=== PATIENT | male | born 1985 | race Caucasian/White ===

== ENCOUNTER 2016-04-27 19:39 | Emergency (ER) | payer MEDICARE, OTHER ==
[2016-04-27] MEDS ORDERED: Bacitracin Zinc 1 Packet ONE (20:12)
== END 2016-04-27 20:23 | disposition home or self-care (01) ==
LOC: BURERS 19:39
DX: L02.415 Cutaneous abscess of right lower limb (principal); E11.9 Type 2 diabetes mellitus without complications; F17.210 Nicotine dependence, cigarettes, uncomplicated
CPT/HCPCS: 10060

== ENCOUNTER 2017-01-16 16:04 | Emergency (ER) | payer MEDICARE, OTHER ==
[2017-01-16 16:30] LABS: #Basophils 0.1 thou/uL (0.0-0.2); #Eosinphils 0.1 thou/uL (0.0-0.7); #Lymphocytes 2.9 thou/uL (1.20-3.40); #Monocytes 0.6 thou/uL (0.11-0.59); %Basophils 0.8 % (0.0-1.0); %Eosinophils 0.9 % (0.0-10.0); %Lymphocytes 27.2 % (21.0-51.0); %Monocytes 5.8 % (0.0-10.0); %Neutrophils 65.2 % (42.0-75.0); Hemoglobin 16.6 g/dL (14.0-18.0); Mean Corpuscular Hemoglobin 32.6 pg (27.0-31.0); Mean Corpuscular Volume 93.3 fl (80.0-94.0); Mean Platelet Volume 6.4 fL (7.4-10.4); Platelet Count 259 thou/uL (130-400); RBC Distribution Width 11.4 % (11.5-14.5); Red Blood Cell (RBC) Count 5.08 mill/uL (4.70-6.10); White Blood Cell (WBC) Count 10.7 thou/uL (4.8-10.8)
[2017-01-16 16:48] LABS: ALT (SGPT) 31 U/L (8-55); AST (SGOT) 17 U/L (5-34); Albumin 4.6 g/dL (3.5-5.0); Alkaline Phosphatase 66 U/L (40-150); Anion Gap 17 mmol/L (10-20); BUN (Urea Nitrogen) 11 mg/dL (8.9-20.6); Bilirubin, Total 0.6 mg/dL (0.2-1.2); Calc. Creatinine Clearance 0 mL/min (70-130); Calcium 9.9 mg/dL (7.8-10.44); Carbon Dioxide 22 mmol/L (22-29); Chloride 100 mmol/L (98-107); Estimated GFR-MDRD Greater than 90; Globulin 3.6 g/dL (2.4-3.5); Glucose 248 mg/dL (70-105); Potassium 4.1 mmol/L (3.5-5.1); Protein, Total 8.2 g/dL (6.0-8.3); Sodium 135 mmol/L (136-145)
[2017-01-16 16:50] LABS: Troponin I Less than 0.010 ng/mL (< 0.028)
[2017-01-16] MEDS ORDERED: Ketorolac Tromethamine 30 MG/ML VIAL ONE (17:02)
== END 2017-01-16 17:55 | disposition home or self-care (01) ==
LOC: BURERS 16:04
DX: R07.9 Chest pain, unspecified (principal); E86.0 Dehydration; E11.9 Type 2 diabetes mellitus without complications; I10 Essential (primary) hypertension; F17.210 Nicotine dependence, cigarettes, uncomplicated; Z79.4 Long term (current) use of insulin
CPT/HCPCS: 80053; 82553; 84443; 84484; 85025; 93005; 96361; 96374; J1885

== ENCOUNTER 2017-06-05 00:39 | Emergency (ER) | payer MEDICARE, OTHER ==
[2017-06-05] MEDS ORDERED: Dicyclomine 20 MG TAB ONE (01:04)
[2017-06-05] MEDS ORDERED: Ketorolac Tromethamine 60 MG/2 ML VIAL ONE (01:04)
[2017-06-05 01:15] LABS: Bilirubin Negative (Negative); Blood, Urine Negative (Negative); Clarity Clear (Clear); Glucose, Urine (Dipstick) 500 mg/dL (Negative); Leukocyte Negative (Negative); Nitrite Negative (Negative); Protein, Urine (Dipstick) Negative (Neg-Trace); Specific Gravity, Urine 1.015 (1.005-1.030); Urobilinogen 0.2 mg/dL (0.2-1.0)
[2017-06-07 01:20] LABS: Chlamydia by PCR Not Detected (NotDetected); GC by PCR Not Detected (NotDetected)
== END 2017-06-05 01:34 | disposition home or self-care (01) ==
LOC: BURERS 00:39
DX: R10.32 Left lower quadrant pain (principal); E11.9 Type 2 diabetes mellitus without complications; I10 Essential (primary) hypertension; F17.210 Nicotine dependence, cigarettes, uncomplicated; Z79.84 Long term (current) use of oral hypoglycemic drugs; Z79.899 Other long term (current) drug therapy
CPT/HCPCS: 81003; 87491; 87591; 96372; J1885

== ENCOUNTER 2017-09-26 12:46 | Emergency (ER) | payer MEDICARE, OTHER ==
[2017-09-26] MEDS ORDERED: Lidocaine 1% 20 ML MDV ONE (13:02)
[2017-09-26] MEDS ORDERED: Lidocaine 1% w/Epinephrine 1:100K 30 ML VIAL ONE ×2 (13:19→13:20)
[2017-09-26] MEDS ORDERED: Triple Antibiotic Oint 1 GM Packet ONE (13:43)
== END 2017-09-26 13:45 | disposition home or self-care (01) ==
LOC: BURERS 12:46
DX: S01.81XA Laceration without foreign body of other part of head, initial encounter (principal); E11.9 Type 2 diabetes mellitus without complications; I10 Essential (primary) hypertension; F17.210 Nicotine dependence, cigarettes, uncomplicated; W22.8XXA Striking against or struck by other objects, initial encounter
CPT/HCPCS: 12011; J2001

== ENCOUNTER 2017-11-02 11:42 | Emergency (ER) | payer MEDICARE, OTHER | END 2017-11-02 12:12 | disposition home or self-care (01) | LOC: BURERS 11:42 | DX: L02.412 Cutaneous abscess of left axilla (principal); E11.9 Type 2 diabetes mellitus without complications; I10 Essential (primary) hypertension; F17.210 Nicotine dependence, cigarettes, uncomplicated; Z79.84 Long term (current) use of oral hypoglycemic drugs; Z79.899 Other long term (current) drug therapy | CPT/HCPCS: 10060 ==

== ENCOUNTER 2018-08-18 19:10 | Emergency (ER) | payer MEDICARE, OTHER ==
[2018-08-18] MEDS ORDERED: Lidocaine 2% w/ Epi 1:200K 10 ML VIAL ONE (19:20)
[2018-08-18] MEDS ORDERED: Bacitracin 1 PK ONE (19:42)
== END 2018-08-18 19:46 | disposition home or self-care (01) ==
LOC: BURERS 19:10
DX: S61.511A Laceration without foreign body of right wrist, initial encounter (principal); I48.91 Unspecified atrial fibrillation; E11.9 Type 2 diabetes mellitus without complications; I10 Essential (primary) hypertension; F17.210 Nicotine dependence, cigarettes, uncomplicated; Z79.84 Long term (current) use of oral hypoglycemic drugs; Z79.899 Other long term (current) drug therapy; W25.XXXA Contact with sharp glass, initial encounter
CPT/HCPCS: 12002

== ENCOUNTER 2018-12-13 10:17 | Emergency (ER) | payer MEDICARE, OTHER | END 2018-12-13 11:04 | disposition home or self-care (01) | LOC: BURERS 10:17 | DX: K02.9 Dental caries, unspecified (principal); I48.91 Unspecified atrial fibrillation; E11.9 Type 2 diabetes mellitus without complications; I10 Essential (primary) hypertension; F17.210 Nicotine dependence, cigarettes, uncomplicated; Z79.84 Long term (current) use of oral hypoglycemic drugs; Z79.899 Other long term (current) drug therapy | CPT/HCPCS: 99282 ==

== ENCOUNTER 2019-02-23 16:35 | Emergency (ER) | payer MEDICARE, OTHER ==
[2019-02-23] MEDS ORDERED: Neomycin-Polymyxin-Hc 7.5 ML BOT ONE (16:48)
== END 2019-02-23 16:55 | disposition home or self-care (01) ==
LOC: BURERS 16:35
DX: H10.9 Unspecified conjunctivitis (principal); I48.91 Unspecified atrial fibrillation; E11.9 Type 2 diabetes mellitus without complications; I10 Essential (primary) hypertension; F17.210 Nicotine dependence, cigarettes, uncomplicated; Z79.899 Other long term (current) drug therapy; Z79.84 Long term (current) use of oral hypoglycemic drugs
CPT/HCPCS: 99283

== ENCOUNTER 2019-12-01 21:11 | Emergency (ER) | payer MEDICARE, OTHER ==
[2019-12-01] MEDS ORDERED: Lidocaine 1% w/Epinephrine 1:100K 20 ML VIAL ONE (21:18)
== END 2019-12-01 21:36 | disposition home or self-care (01) ==
LOC: BURERS 21:11
DX: L02.212 Cutaneous abscess of back [any part, except buttock and flank] (principal); I49.9 Cardiac arrhythmia, unspecified; I48.91 Unspecified atrial fibrillation; E11.9 Type 2 diabetes mellitus without complications; I10 Essential (primary) hypertension; F17.210 Nicotine dependence, cigarettes, uncomplicated
CPT/HCPCS: 10060